=== PATIENT | male | born 2000 | race Hispanic/Latino ===

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

== ENCOUNTER 2021-07-17 11:00 | Emergency (ER) | payer OTHER ==
[~2021-07-17] VITALS: Ht 180.3 cm; Wt 100.7 kg
[~2021-07-17 11:00] MED LIST changes: +BACTRIM DS TAB1 EACH PO; +IBUPROFEN400 MG PO
[2021-07-17] MEDS ORDERED: TRAMADOL HCL 50 MG TAB PO STA (11:23)
[2021-07-17] MEDS ORDERED: TRAMADOL HCL 50 MG TAB ONE (12:14)
[2021-07-17] MEDS ORDERED: ULTRAM 50MG50 MG PO ×2 (12:36→16:47)
[2021-07-17] MEDS ORDERED: CEPHALEXIN500 MG PO (12:36)
[2021-07-17 12:47] VITALS: BP 135/75
== END 2021-07-17 12:52 | disposition home or self-care (01) ==
LOC: FSED 11:04
DX: T84.498A Other mechanical complication of other internal orthopedic devices, implants and grafts, initial encounter (principal); T84.84XA Pain due to internal orthopedic prosthetic devices, implants and grafts, initial encounter; Y83.8 Other surgical procedures as the cause of abnormal reaction of the patient, or of later complication, without mention of misadventure at the time of the procedure; Z88.6 Allergy status to analgesic agent; Z87.81 Personal history of (healed) traumatic fracture
CPT/HCPCS: 99283

== ENCOUNTER 2024-08-11 00:32 | Emergency (ER) | payer SELFPAY ==
[~2024-08-11] VITALS: Ht 177.8 cm; Wt 117.9 kg
[~2024-08-11 00:32] MED LIST changes: +CEPHALEXIN500 MG PO; +ULTRAM 50MG50 MG PO
[2024-08-11 00:35] VITALS: PULSE 81; RESP 21; TEMP 97.9
[2024-08-11] MEDS: LIDOCAINE HCL 1% LOCAL INJ 20 ML VIAL INJ STA (00:46)
[2024-08-11 01:21] VITALS: BP 145/89; PULSE 81; RESP 18; TEMP 97.8; O2SAT 100
== END 2024-08-11 01:25 | disposition home or self-care (01) ==
LOC: FSED 00:35
DX: S67.195A Crushing injury of left ring finger, initial encounter (principal); S61.315A Laceration without foreign body of left ring finger with damage to nail, initial encounter; W23.1XXA Caught, crushed, jammed, or pinched between stationary objects, initial encounter; Y99.0 Civilian activity done for income or pay; J45.909 Unspecified asthma, uncomplicated
CPT/HCPCS: 99284

== ENCOUNTER 2025-05-31 20:06 | Emergency (ER) | payer SELFPAY ==
[~2025-05-31] VITALS: Ht 177.8 cm; Wt 125.6 kg
[2025-05-31 20:12] VITALS: PULSE 90; RESP 18; TEMP 98.5
[2025-05-31 21:17] VITALS: BP 136/85; PULSE 90; RESP 18; TEMP 98.5; O2SAT 98
== END 2025-05-31 21:05 | disposition home or self-care (01) ==
LOC: FSED 20:09
DX: Z03.89 Encounter for observation for other suspected diseases and conditions ruled out (principal); J45.909 Unspecified asthma, uncomplicated; E66.9 Obesity, unspecified
CPT/HCPCS: 81003; 99283